=== PATIENT | female | born 1995 | race Caucasian/White ===

== ENCOUNTER 2025-05-19 23:34 | Emergency (ER) | payer BC ==
[~2025-05-19] VITALS: Ht 154.9 cm; Wt 56.7 kg
[2025-05-20] VITALS: BP 118/66; TEMP 98
[2025-05-20] MEDS ORDERED: FLUORESCEIN SODIUM OPHTH 1 EA STRIP ONE (00:16)
[2025-05-20] MEDS ORDERED: TETRAcaine 5 ML BOTTLE ONE (00:16)
[2025-05-20] MEDS ORDERED: LEVO5DRO21 RIGHTEYE (00:27)
[2025-05-20 00:53] VITALS: O2SAT 97
== END 2025-05-20 00:54 | disposition home or self-care (01) ==
LOC: ER 23:47
DX: S05.91XA Unspecified injury of right eye and orbit, initial encounter (principal); X58.XXXA Exposure to other specified factors, initial encounter; Y93.89 Activity, other specified; Y92.89 Other specified places as the place of occurrence of the external cause; Y99.8 Other external cause status; Z88.0 Allergy status to penicillin